=== PATIENT | male | born 1970 | race Caucasian/White ===

== ENCOUNTER → 2017-02-22 | Outpatient (CLI) | payer BC ==
--- NOTE | 2017-02-22 14:50 | DI ---
MRI LUMBAR SPINE SCAN WITHOUT IV CONTRAST, 02/22/2017 1:11 PM: Clinical History: Low back pain. Previous Exam: None. Technique: Sagittal and axial T2 weighted; sagittal T1 weighted and T2 STIR; and axial PD. The vertebral bodies are of normal height and size. There is mild disc space narrowing at L1-2 and L2 -3 with severe narrowing at L5-S1. All lumbar disc spaces show mild to moderate desiccation change. T he cord terminates at T12. The conus medullaris is normal. T10-11 and T11-12 disc spaces show a minim ally bulging but not herniated disc without canal or neural foraminal stenosis. The T12-L1 and L1-2 d isc spaces are normal. L2-3 and L3-4 disc spaces have a circumferentially bulging but not herniated d iscs without canal or neural foraminal stenosis. There are hypertrophic changes of the apophyseal amira nts and ligamentum flavum at L3-4. The L4-5 disc is normal but there is marked hypertrophic change of the apophyseal joints and ligamentum flavum producing a cross-sectional area of the canal that is at the lower limits of normal. There is no neural foraminal stenosis. L5-S1 has a grade 1 reverse spond ylolisthesis with a right lateral focal disc herniation that potentially can cause impingement of the right S1 nerve root before it enters into the lateral recess of S1. There is no canal or left neural foraminal stenosis. The right neural foramen is narrowed but the nerve root still exits appropriatel y. Degenerative arthritic changes are present in the apophyseal joints bilaterally. Readin. There is a grade 1 reverse spondylolisthesis at L5-S1 with a right lateral disc herniation causin g potential impingement on the right S1 nerve root as it enters into the lateral recess of S1. There is no canal or significant neural foraminal stenosis. Degenerative arthritic changes are present in b oth apophyseal joints. 2. There are bulging but not herniated discs without canal or neural foraminal stenosis at T10-11, T 11-12, and L2-3 through L4-5. There are degenerative hypertrophic changes of the apophyseal joints an d hypertrophy of the ligamentum flavum at L3-4 and L4-5. 3. The T12-L1 and L1-2 disc spaces are normal.
== END ==
LOC: MRI 13:07
PROVIDERS: ATTEND Physician Assistant Medical
DX: M54.5 Low back pain (principal); M43.17 Spondylolisthesis, lumbosacral region; M51.27 Other intervertebral disc displacement, lumbosacral region; M47.815 Spondylosis without myelopathy or radiculopathy, thoracolumbar region
CPT/HCPCS: 72148

== ENCOUNTER → 2017-02-23 | Outpatient (CLI) | payer BC ==
--- NOTE | 2017-02-24 09:43 | DI ---
MRI CERVICAL SPINE SCAN, 02/23/2017 11:47 AM: Clinical History: Neck pain. Previous Exam: None. Sequences: Sagittal T1and T2 weighted. Axial T2 PLUS and FE 3D DUAL. Coronal T1 scans through the upp er cervical spine. The vertebral bodies are of normal height and size. There is disc space narrowing at C2-3, C5-6, and C6-7. All cervical disc spaces show desiccation change. The cervical cord and cerebellar tonsils are normal. The C2-3 and C3-4 disc spaces are normal. C4-5 has a central bulging but not herniated disc w ithout canal or left neural foraminal stenosis. There is mild right neural foraminal stenosis. C5-6 h as a central bulging but not herniated disc without canal or neural foraminal stenosis. C6-7 has a ri ght anterolateral disc herniation that is causing mild spinal canal stenosis and right neural foramin al stenosis. There is no left neural foraminal stenosis. There is a central bulging but not herniated disc without canal or neural foraminal stenosis at C7-T1. The T1-2 and T2-3 disc spaces are normal. Readin. There is a mild focal right lateral disc herniation that is causing right neural foraminal stenos is and mild spinal canal stenosis in the AP diameter at C6-7. There is no left neural foraminal steno sis. 2. C4-5, C5-6, and C7-T1 have bulging but not herniated discs without canal or significant neural fo raminal stenosis. 3. The C2-3, C3-4, T1-2, and T2-3 disc spaces are normal.
== END ==
LOC: MRI 12:43
PROVIDERS: ATTEND Physician Assistant Medical
DX: M54.2 Cervicalgia (principal); M50.123 Cervical disc disorder at C6-C7 level with radiculopathy; M47.812 Spondylosis without myelopathy or radiculopathy, cervical region
CPT/HCPCS: 72141

== ENCOUNTER → 2017-02-24 | Outpatient (CLI) | payer BC ==
--- NOTE | 2017-02-24 20:11 | DI ---
MRI THORACIC SPINE SCAN, 02/24/2017 11:58 AM: Clinical History: Thoracic back pain. Previous Exam: None. Technique: Sagittal T1 and T2 weighted and STIR scans are supplemented with axial T1 and T2 weighted scans between T1 and T12. The vertebral bodies are of normal height and size. There is disc space narrowing at T5-6, and the re maining disc spaces are of normal height. All disc spaces show mild desiccation change. The thoracic cord and the conus medullaris are normal. The disc spaces from C7-T1 through T4-5 are normal. T5-6 sin s a central bulging but not herniated disc without canal or neural foraminal stenosis. The disc space s from T6-7 through T12-L1 are normal. There are no other extradural lesions. There are no intradural extramedullary or intramedullary lesions. Readin. There is chronic disc space narrowing at T5-6 with a bulging but not herniated disc and no canal or neural foraminal stenosis. 2. The disc spaces from C7-T1 through T4-5, and from T6-7 through T12-L1 are normal. 3. The thoracic cord is normal. There is no intradural extramedullary lesion.
== END ==
LOC: MRI 12:54
PROVIDERS: ATTEND Physician Assistant Medical
DX: M54.6 Pain in thoracic spine (principal); M62.81 Muscle weakness (generalized); M47.814 Spondylosis without myelopathy or radiculopathy, thoracic region
CPT/HCPCS: 72146

== ENCOUNTER → 2017-02-27 | Outpatient (CLI) | payer BC ==
[2017-02-27 13:24] LABS: BASOPHILS % (AUTO) 0.9 % (0-1); EOSINOPHILS % (AUTO) 2.8 % (0-8); HEMATOCRIT 55.5 % (42.0-52.0); HEMOGLOBIN 19.8 g/dL (14.0-18.0); MEAN CORPUSCULAR HEMOGLOBIN 28.7 PG (27-31); MEAN CORPUSCULAR HGB CONC 35.7 g/dL (33-37); MEAN CORPUSCULAR VOLUME 80.6 FL (80-90); MEAN PLATELET VOLUME 9.6 FL (7.4-12.2); MONOCYTES % (AUTO) 6.4 % (5-15); NEUTROPHILS % (AUTO) 64.4 % (50-80); RED BLOOD COUNT 6.89 10^6/uL (4.70-6.10)
[2017-02-27 13:25] LABS: BASOPHILS # (AUTO) 0.1 10*3/UL; EOSINOPHILS # (AUTO) 0.3 10*3/UL; LYMPHOCYTES # (AUTO) 2.67 10*3/uL; MONOCYTES # (AUTO) 0.68 10*3/UL (0.3-0.8); NEUTROPHILS # (AUTO) 6.85 10*3/UL; PLATELET MORPHOLOGY COMMENT NORMAL MORPHOLOGY (NORM); RBC MORPHOLOGY COMMENT NORMAL MORPHOLOGY (NORM); WBC MORPHOLOGY COMMENT NORMAL MORPHOLOGY (NORM)
[2017-02-27 14:00] LABS: ERYTHROCYTE SEDIMENTATION RATE 1 MM/HR (0-15)
--- NOTE | 2017-02-28 00:23 | DI ---
MRI BRAIN W/WO BRENT,02/27/2017 1:04 PM: Clinical History: Fatigue and muscle weakness Previous Exam: None at this facility. Findings: Multiplanar MR images are obtained through the brain with and without contrast, and demonstrate mild mucoperiosteal thickening of the left maxillary and sphenoid sinuses. There is no mass, hemorrhage nor midline shift. There is no evidence of abnormally restricted diffusion. The cerebellopontine angles are unremarkable . The intraorbital structures are also unremarkable. There is no abnormal enhancement. The upper cervical spine is unremarkable. Impression: Normal MRI brain.
== END ==
LOC: MRI 12:58
PROVIDERS: ATTEND Physician Assistant Medical
DX: M62.81 Muscle weakness (generalized) (principal); R53.83 Other fatigue
CPT/HCPCS: 36415; 70553; 85025; 85652; 86038; 86140; 86200; 86431